=== PATIENT | male | born 1970 | race Two or more races ===

== ENCOUNTER → 2025-01-20 | Day surgery (SDC) | payer MEDICARE, MEDICAID ==
[2025-01-19 12:10] LABS: Basophils # (auto) 0.1 10 ^3/uL (0-0.2); Basophils % (auto) 1.1 % (0.0-2.0); Eosinophils # (auto) 0.3 10 ^3/uL (0-0.8); Eosinophils % (auto) 3.2 % (0.0-7.0); Hematocrit 57.2 % (41.0-53.0); Hemoglobin 19.7 g/dL (13.5-17.5); Lymphocytes # (auto) 2.1 10 ^3/uL (0.4-5.4); Lymphocytes % (auto) 24.2 % (10.0-50.0); Mean Corpuscular Hemoglobin 31.8 pg (28.0-32.0); Mean Corpuscular Hgb Conc. 34.5 g/dL (32.0-36.0); Monocytes # (auto) 1.1 10 ^3/uL (0-1.3); Monocytes % (auto) 12.6 % (0.0-12.0); Neutrophils # (auto) 5.2 10 ^3/uL (1.6-8.6); Neutrophils % (auto) 58.9 % (37.0-80.0); Nucleated Red Blood Cells % 0.2 %; Platelet Count (auto) 242 10^3/uL (140-450); Red Blood Cells 6.22 10^6/uL (4.5-5.90); Red Cell Distribution Width 13.7 % (11.8-14.3); White Blood Cell 8.8 10^3/uL (4.4-10.8)
[2025-01-19 12:23] LABS: INR 1.01 (0.9-1.15); Partial Thromboplastin Time 29.6 SEC (24.5-34.5); Prothrombin Time 10.7 sec (9.3-11.8)
[2025-01-19 12:29] LABS: Alanine Aminotransferase 32 U/L (7-40); Alkaline Phosphatase 90 U/L (46-116); Anion Gap 6 (5-15); BUN/Creatinine Ratio 11.8 (10.0-20.0); Blood Urea Nitrogen 12 mg/dL (9-23); Carbon Dioxide 31 mmol/L (20-31); Chloride 102 mmol/L (98-107); Potassium 4.6 mmol/L (3.5-5.1); Sodium 139 mmol/L (136-145); Total Protein 7.8 g/dL (5.7-8.2)
[2025-01-19 12:30] LABS: Albumin 4.9 g/dL (3.2-4.8); Aspartate Aminotransferase 20 U/L (13-40); Bilirubin, Total 0.6 mg/dL (0.2-1.0); Calcium 10.4 mg/dL (8.7-10.4); Glucose 116 mg/dL (74-106)
[~2025-01-20] VITALS: Ht 175.3 cm; Wt 97.5 kg
[~2025-01-20] MED LIST: BUSP15TA60 PO; DULO60CA41 PO; TRAZ-228 PO
[2025-01-20] MEDS: MIDAZOLAM HCL 2MG/2ML 2ml VIAL (1mg/ml) ONE ×2 (09:35→09:45)
[2025-01-20] MEDS: fentaNYL CITRATE 100 MCG/2 ML VL ONE (09:35)
--- NOTE | 2025-01-20 09:39 | DVHNC2 ---
Procedure - PROCEDURE DATE: JANUARY 20, 2025 PROCEDURE PERFORMED BY: Reji Flores MD REFERRING PROVIDER: Dr Ledezma PROCEDURE PERFORMED: 1. COLONOSCOPY WITH MODERATE SEDATION 2. COLONOSCOPY WITH COLD BIOPSY POLYPECTOMY PRE-PROCEDURE DIAGNOSIS: 1. COLON CANCER SCREENING POSTPROCEDURE DIAGNOSIS: 1. Small internal and external hemorrhoids 2. Two small colon polyps ascending colon and rectum removed with biopsy forceps 3. Moderate left-sided diverticulosis INDICATIONS FOR PROCEDURE: The patient is a 54-year-old male who presents for outpatient colonoscopy for screening. MEDICATIONS USED: 10mg of Versed IV and 100mcg of fentanyl IV were given in incremental doses DETAILS OF THE PROCEDURE: Informed consent was obtained after risks, benefits, and alternatives, were discussed at length with the patient. The patient gave consent to the procedure as well as some medication used for sedation. The patient was placed in the left lateral decubitus position, and a digital rectal exam was performed. The digital rectal exam showed internal hemorrhoids and external hemorrhoids. An Olympus variable torsion adult colonoscope was i nserted into the rectum and independence to the cecum. The cecum was identified by the ileocecal valve appendiceal orifice. The scope was then withdrawn. [place] bowel prep score of 7 was noted. There were no large polyps, masses, strictures, or arteriovenous malformations seen. The patient had two colon polyps in the ascending colon measuring 6 mm removed completely with cold biopsy polypectomy and in the rectum measuring 3 mm removed completely with cold biopsy polypectomy. The patient had diverticulosis in the left colon moderate. More than 6 minutes withdrawal time was noted. Retroflexion showed internal hemorrhoids. The patient tolerated the procedure well. START TIME: 946 CECUM TIME: 948 END TIME: 957 IMPRESSION: 1. Two colon polyps removed with cold biopsy polypectomy in the ascending colon and rectum 2. Internal and external hemorrhoids RECOMMENDATION: 1. High-fiber diet 2. Repeat colonoscopy in five years unless otherwise indicated by symptoms or family history 3. follow up in GI clinic 4. Medical management of hemorrhoids as indicated 5. Any other endoscopic procedure needs to be done with anesthesia to the lawrence ent's tolerance of the medication I WOULD LIKE TO THANK DR PIKE FOR THIS REFERRAL REJI FLORES MD January 20, 2025 09:39
[2025-01-20 10:04] VITALS: TEMP 97.1
[2025-01-20 10:30] VITALS: BP 120/84; PULSE 83; RESP 15; O2SAT 96
== END | disposition home or self-care (01) ==
LOC: GI 07:57
PROVIDERS: ATTEND Specialist
DX: Z12.11 Encounter for screening for malignant neoplasm of colon (principal); D12.2 Benign neoplasm of ascending colon; F41.9 Anxiety disorder, unspecified; F32.9 Major depressive disorder, single episode, unspecified; Z98.890 Other specified postprocedural states; K57.30 Diverticulosis of large intestine without perforation or abscess without bleeding; K64.8 Other hemorrhoids; K64.4 Residual hemorrhoidal skin tags
CPT/HCPCS: 36415; 45380; 80053; 85025; 85610; 85730; 88305; J2250; J3010; 99152